=== PATIENT | male | born 1975 | race American Indian/Alaskan Native ===

== ENCOUNTER 2016-07-03 23:50 | Emergency (ER) | payer MEDICARE ==
[2016-07-04] MEDS ORDERED: TORADOL IM ONE (03:42)
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
[2016-07-04 06:19] VITALS: BP 141/93
== END 2016-07-04 06:21 | disposition home or self-care (01) ==
LOC: ED 23:50
DX: M54.5 Low back pain (principal); G89.29 Other chronic pain; V89.2XXD Person injured in unspecified motor-vehicle accident, traffic, subsequent encounter; Z91.013 Allergy to seafood; Z88.8 Allergy status to other drugs, medicaments and biological substances
CPT/HCPCS: 96372; 99282; J1885